=== PATIENT | female | born 2005 | race African-American/Black ===

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

== ENCOUNTER → 2023-03-08 | Outpatient (REF) ==
[~2023-03-08] MED LIST: IBUP-1022 PO
== END ==
LOC: M PLAIMG 13:48
PROVIDERS: ATTEND Internal Medicine
DX: R52 Pain, unspecified (principal)

== ENCOUNTER 2023-06-21 07:07 | Emergency (ER) | payer OTHER ==
[~2023-06-21] VITALS: Ht 167.6 cm; Wt 61.3 kg
[2023-06-21] MEDS: ACETAMINOPHEN TAB 650MG DOSE (2X325MG) PO ONE (08:08)
[2023-06-21 09:08] VITALS: BP 114/59; TEMP 97.1; O2SAT 100
== END 2023-06-21 09:11 | disposition home or self-care (01) ==
LOC: M ED 07:07
DX: S06.0X0A Concussion without loss of consciousness, initial encounter (principal); Y92.019 Unspecified place in single-family (private) house as the place of occurrence of the external cause; Y93.9 Activity, unspecified; Y99.9 Unspecified external cause status